=== PATIENT | female | born 1975 | race Caucasian/White ===

== ENCOUNTER 2023-06-04 19:19 | Emergency (ER) | payer OTHER ==
[~2023-06-04] VITALS: Ht 152.4 cm; Wt 81.2 kg
[~2023-06-04 19:19] MED LIST: SUDAFED
[2023-06-04 20:00] VITALS: BP 130/91; PULSE 76; RESP 18; TEMP 97.1; O2SAT 98
[2023-06-04] MEDS: ACETAMINOPHEN 325 MG TAB PO ONE (20:52)
[2023-06-04] MEDS ORDERED: ACET-10509 PO (21:19)
== END 2023-06-04 21:25 | disposition home or self-care (01) ==
LOC: MED 19:19
DX: R51.9 Headache, unspecified (principal); R03.0 Elevated blood-pressure reading, without diagnosis of hypertension; Z79.899 Other long term (current) drug therapy
CPT/HCPCS: 99282